=== PATIENT | female | born 1960 | race Caucasian/White ===

== ENCOUNTER 2019-03-28 14:37 | Outpatient (CLI) | payer MEDICARE | END 2019-03-28 14:38 | disposition short-term general hospital (02) | LOC: EMS 14:37 | PROVIDERS: ATTEND Surgery | DX: S50.312A Abrasion of left elbow, initial encounter (principal); V59.40XA Driver of pick-up truck or van injured in collision with unspecified motor vehicles in traffic accident, initial encounter; Y92.413 State road as the place of occurrence of the external cause ==

== ENCOUNTER 2019-06-03 04:00 | Outpatient (CLI) | payer MEDICARE | END 2019-06-03 04:01 | disposition critical access hospital (66) | LOC: EMS 04:00 | PROVIDERS: ATTEND Surgery | DX: M79.89 Other specified soft tissue disorders (principal) | CPT/HCPCS: A0425; A0429 ==

== ENCOUNTER 2019-06-03 04:24 | Emergency (ER) | payer MEDICARE ==
[2019-06-03] MEDS ORDERED: DOXYCYCLINE 100 MG TABLET PO STA (04:42)
--- NOTE | 2019-06-03 04:42 | ED Physician Documentation ---
PD HPI SKIN - Stated complaint Stated Complaint: SWOLLEN LEFT FOOT - Chief complaint Chief Complaint: Ext Problem - History obtained from History obtained from: Patient, EMS - History of Present Illness Timing - onset: Enter time (14:30), Yesterday Timing - details: Abrupt onset Location: LLE Quality / character: Discolored, Swelling Associated symptoms: No: Fever Similar symptoms before: Has not had sx before - Additional information Additional information: BIBA. c/o sudden onset LLE pain yesterday at 2:30 PM while wearing boots, no injury. patient says she believes she was bitten by a spider or insect. c/o gradually worsening pain, swelling , redness of left leg, most pronounced at lateral aspect of left ankle. Review of Systems Constitutional: reports: Reviewed and negative Skin: reports: Rash (left ankle redness and swelling) Musculoskeletal: reports: Extremity pain, Extremity swelling PD PAST MEDICAL HISTORY - Past Medical History Past Medical History: No - Past Surgical History Past Surgical History: Yes /[employer]ESS[employer]: Hysterectomy - Present Medications Home Medications: Ambulatory Orders Medication Instructions Recorded Confirmed No Known Home Medications 01/26/15 06/03/19 Doxycycline Hyclate [Vibramycin] 100 mg PO BID #14 capsule 06/03/19 - Allergies Allergies/Adverse Reactions: Allergies Allergy/AdvReac Type Severity Reaction Status Date / Time antibiotics Allergy Unknown Uncoded 06/03/19 04:33 - Social History Does the pt smoke?: Yes Smoking Status: Current every day smoker Does the pt drink ETOH?: Yes Does the pt have substance abuse?: Yes - Immunizations Immunizations: TDAP >10years/unknown - POLST Patient has POLST: No PD ED PE NORMAL - Vitals Vital signs reviewed: Yes - General General: Alert and oriented X 3, No acute distress, Well developed/nourished - Extremities Extremities: Normal ROM s pain, No calf tenderness / cord - Neuro Neuro: No motor deficit, No sensory deficit PD ED PE EXPANDED - Extremities Feet visual: 1 - rash (faintly marginated confluent erythema with mild swelling, mild TTP, mild warmth to touch (increased tactile heat compared to surrounding area and right ankle)) Results - Vitals Vitals: Vital Signs - 24 hr 06/03/19 06/03/19 04:30 05:06 Temperature 36.7 C 36.5 C Heart Rate 98 95 Respiratory 16 14 Rate Blood Pressure 134/95 H 135/96 H O2 Saturation 97 97 Oxygen O2 Source Room air PD MEDICAL DECISION MAKING - ED course Complexity details: reviewed old records, considered differential, d/w patient Departure - Departure Disposition: 01 Home, Self Care Clinical Impression: Cellulitis Condition: Good Instructions: ED Infec Skin Cellulitis Prescriptions: Doxycycline Hyclate [Vibramycin] 100 mg PO BID #14 capsule Discharge Date/Time: 06/03/19 05:23
[2019-06-03 05:08] VITALS: BP 135/96
== END 2019-06-03 05:23 | disposition home or self-care (01) ==
LOC: EDUNIT# → ED 04:24
DX: L03.116 Cellulitis of left lower limb (principal); F17.200 Nicotine dependence, unspecified, uncomplicated
CPT/HCPCS: 99282; 99283; A9270